=== PATIENT | male | born 1955 | race Caucasian/White ===

== ENCOUNTER → 2016-05-07 | Day surgery (SDC) | payer BC ==
[2016-05-01 13:30] VITALS: Ht 172.7 cm; Wt 86.4 kg
[~2016-05-07] VITALS: Ht 172.7 cm; Wt 86.4 kg
[~2016-05-07] MED LIST: ATOR-24 PO; IRBE-37 PO; LIDOCAINE HCL 2% 2 ML VIAL (20MG/ML) ONE; METO50TA7 PO; PROPOFOL IV EMULSION 10 MG/ML 20 ML VIAL IV ONE; SODIUM CHLORIDE 0.9% 500ML 500 ML IV ONE
--- NOTE | 2016-05-07 09:40 | Endo History and Physical ---
History & Physical Date of Service: May 07, 2016. Chief Complaint: screening Referring Physician: Dr. Rafael Holder History of Present Illness 61 yo CM who presents for screening colonoscopy. Past Surgical History Hx Cardiac Surgery: No Hx Internal Defibrillator: No Hx Pacemaker: No Hx Abdominal Surgery: No Hx of Implantable Prosthesis: No Hx Post-Op Nausea and Vomiting: No Hx Cancer Surgery: No Hx Thoracic Surgery: No Hx Orthopedic: No Hx Urinary Tract Surgery: No Family History None Social History Smoking Status: Never Smoker Hx Substance Use: No Hx Alcohol Use: No Allergies Coded Allergies: No Known Allergies (Verified , 05/07/16) Current Medications Reported Home Medications Medications Dose Route/Sig Max Daily Dose Days Date Category Lipitor (Atorvastatin Calcium) 40 Mg Tab 40 Mg PO HS 05/01/16 Reported Toprol-Xl (Metoprolol Succinate) 50 Mg Tabcr 50 Mg PO BID 05/01/16 Reported Avapro (Irbesartan) 150 Mg Tab 150 Mg PO HS 05/01/16 Reported Vital Signs Weight (Kilograms): 86.36 Height (Feet): 5 Height (Inches): 8 Date Time Temp Pulse Resp B/P Pulse Ox O2 Delivery O2 Flow Rate FiO2 05/07/16 09:19 36.9 80 16 174/87 98 Room Air Physical Exam General Appearance: WD/WN, no apparent distress Respiratory/Chest: Auscultation: breath sounds normal Cardiovascular: Heart Auscultation: RRR Abdomen: Bowel Sounds: normal Inspection & Palpation: soft, non-distended, no tenderness, guarding & rebound Assessment and Plan Assessment: 61 yo CM who presents for screening colonoscopy. Plan: Proceed with colonoscopy.
--- NOTE | 2016-05-07 09:56 | Discharge Instructions ---
Endoscopy Patient Instructions Date / Procedure(s) Performed May 07, 2016. Colonoscopy Allergy Information Coded Allergies: No Known Allergies (Verified , 05/07/16) Discharge Date / Findings May 07, 2016. Diverticulosis Internal hemorrhoids Medication Instructions OK to resume all medications today as prescribed. Reported Home Medications Medications Dose Route/Sig Max Daily Dose Days Date Category Lipitor (Atorvastatin Calcium) 40 Mg Tab 40 Mg PO HS 05/01/16 Reported Toprol-Xl (Metoprolol Succinate) 50 Mg Tabcr 50 Mg PO BID 05/01/16 Reported Avapro (Irbesartan) 150 Mg Tab 150 Mg PO HS 05/01/16 Reported Provider Instructions Activity Restrictions - No exercising or heavy lifting for 24 hours. - Do not drink alcohol the day of the procedure. - Do not drive a car or operate machinery until the day after the procedure. - Do not make any important decisions or sign important papers in 24 hours after the procedure. Following Day: - Return to full activity which may include returning to work/school. Diet Start your diet with liquids and light foods (jello, soup, juice, toast). Then eat your usual diet if not nauseated. Treatment For Common After Affects For mild abdominal pain, bloating, or excessive gas: - Rest - Eat lightly - Lie on right side Follow-Up Information Follow-up with Dr. Rafael Holder as scheduled Anesthesia Information What You Should Know You have had a procedure that required some medicine to reduce anxiety and discomfort. This treatment is called moderate sedation. After receiving the treatment, you may be sleepy, but you will be able to breathe on your own. The effects of the treatment may last for several hours. Follow these instructions along with Activity/Diet recommendations noted above: * Do NOT do anything where dizziness or clumsiness would be dangerous. * Rest quietly at home today, then you can be up and about tomorrow. * Have a responsible person stay with you the rest of today. * You may have had an I.V. today. If so, you may take the dressing off later today. Recommendations Call your doctor if: * Trouble breathing * Continuous vomiting for more than 24 hours * Temperature above 101 degrees * Severe abdominal pain or bloating * Pain not relieved by pain medicine ordered * There is increased drainage or redness from any incision * A large amount of rectal bleeding greater than 2-3 tablespoons. (If you had a polyp/s removed or have hemorrhoids, a small amount of blood - from the rectum is to be expected.) * You have any unanswered questions or concerns. IN THE EVENT OF A SERIOUS EMERGENCY, GO TO THE NEAREST EMERGENCY ROOM Your discharge instructions were prepared by provider John Acuña. Patient Instructions Signature Page Michele Villa Patient (or Guardian) Signature/Date: I have read and understand the instructions given to me by my caregivers. Caregiver/RN/Doctor Signature/Date: The above-named patient and/or guardian has received patient instructions on this date. + Original Patient Signature Page (only) stays with chart. Please make copy for patient.
--- NOTE | 2016-05-07 10:17 | GI REPORT ---
Procedure Date: 05/07/2016 9:36 AM Procedure: Colonoscopy Indications: Screening for colorectal malignant neoplasm Medicines: Monitored Anesthesia Care Complications: No immediate complications. Estimated Blood Loss: Estimated blood loss: none. Procedure: Pre-Anesthesia Assessment: - Prior to the procedure, a History and Physical was performed, and patient medications and allergies were reviewed. The patient's tolerance of previous anesthesia was also reviewed. The risks and benefits of the procedure and the sedation options and risks were discussed with the patient. All questions were answered, and informed consent was obtained. Prior Anticoagulants: The patient has taken no previous anticoagulant or antiplatelet agents. ASA Grade Assessment: II - A patient with mild systemic disease. After reviewing the risks and benefits, the patient was deemed in satisfactory condition to undergo the procedure. After I obtained informed consent, the scope was passed under direct vision. Throughout the procedure, the patient's blood pressure, pulse, and oxygen saturations were monitored continuously. The On-site loaner was introduced through the anus and advanced to the cecum, identified by appendiceal orifice and ileocecal valve. The colonoscopy was performed without difficulty. The patient tolerated the procedure well. The quality of the bowel preparation was good. The ileocecal valve, appendiceal orifice, and rectum were photographed. Findings: Multiple small-mouthed diverticula were found in the sigmoid colon. Non-bleeding internal hemorrhoids were found during retroflexion. The hemorrhoids were small. Impression: - Diverticulosis in the sigmoid colon. - Non-bleeding internal hemorrhoids. - No specimens collected. Recommendation: - Resume previous diet. - Continue present medications. - Repeat colonoscopy in 10 years for surveillance. - Return to primary care physician as previously scheduled. John Acuña, DO 05/07/2016 10:01:55 AM This report has been signed electronically. Note Initiated On: 05/07/2016 9:36 AM
--- NOTE | 2016-05-07 10:17 | Anesthesiology Progress Note ---
Anesthesia Post Op Note Date & Time May 07, 2016 at 10:18 Vital Signs Pain Intensity: 0 Vital Signs Past 12 Hours Date Time Temp Pulse Resp B/P Pulse Ox O2 Delivery O2 Flow Rate FiO2 05/07/16 10:01 77 20 97/58 97 Room Air 05/07/16 09:19 36.9 80 16 174/87 98 Room Air Notes Mental Status: alert / awake / arousable, participated in evaluation Pt Amnestic to Procedure: Yes Nausea / Vomiting: adequately controlled Pain: adequately controlled Airway Patency, RR, SpO2: stable & adequate BP & HR: stable & adequate Hydration State: stable & adequate Anesthetic Complications: no major complications apparent
[2016-05-07 10:31] VITALS: BP 124/69; PULSE 64; O2SAT 97
== END | disposition home or self-care (01) ==
LOC: C.GI 08:45
PROVIDERS: ATTEND Internal Medicine
DX: Z12.11 Encounter for screening for malignant neoplasm of colon (principal); K57.30 Diverticulosis of large intestine without perforation or abscess without bleeding; K64.8 Other hemorrhoids

== ENCOUNTER → 2016-05-25 | Outpatient (CLI) | payer BC ==
[~2016-05-25] MED LIST changes: -LIDOCAINE HCL 2% 2 ML VIAL (20MG/ML) ONE; -PROPOFOL IV EMULSION 10 MG/ML 20 ML VIAL IV ONE; -SODIUM CHLORIDE 0.9% 500ML 500 ML IV ONE
[2016-05-25 08:21] LABS: BASO % 0.1 %; BASO ABS # 0.01 K/uL (0-0.2); COMPLETE YES; EOS % 0.9 %; HEMATOCRIT 46.9 % (42-52); IG% 0.2 %; LYMPH % 27.2 %; LYMPH ABS # 2.37 K/uL (1.2-3.4); MEAN CELL VOLUME 86.9 fL (80-100); MEAN CORPUSCULAR HGB CONC 34.5 g/dl (32-36); MONO % 8.2 %; NEUT % 63.4 %; PLATELET COUNT 261 K/uL (130-400)
[2016-05-25 09:00] LABS: PROSTATE SPECIFIC ANTIGEN 1.06 ng/ml (0.000-4.000)
[2016-05-26 08:11] LABS: ESTIMATED AVERAGE GLUCOSE 117 mg/dl; HA1C FLAG Normal (Normal)
== END | disposition home or self-care (01) ==
LOC: C.LAB 07:55
PROVIDERS: ATTEND Internal Medicine
DX: R97.20 Elevated prostate specific antigen [PSA] (principal); I10 Essential (primary) hypertension; D72.829 Elevated white blood cell count, unspecified; E78.00 Pure hypercholesterolemia, unspecified

== ENCOUNTER → 2016-10-23 | Outpatient (CLI) | payer BC | END | disposition home or self-care (01) | LOC: C.PATHSPEC 16:43 | PROVIDERS: ATTEND Dermatology | DX: L82.1 Other seborrheic keratosis (principal); L57.0 Actinic keratosis ==

== ENCOUNTER → 2016-11-27 | Outpatient (CLI) | payer BC ==
[2016-11-27 16:14] LABS: ALT/SGPT 33 U/L (12-78); BLOOD UREA NITROGEN 13 mg/dl (7-18); BUN/CREATININE RATIO 12.9 (10-20); CALCIUM 8.8 mg/dl (8.5-10.1); CARBON DIOXIDE 28 mmol/L (21-32); CHLORIDE 108 mmol/L (98-107); CREATININE 0.99 mg/dl (0.60-1.40); GLUCOSE 83 mg/dl (70-99); POTASSIUM 3.6 mmol/L (3.5-5.1); SODIUM 141 mmol/L (136-145)
[2016-11-27 16:16] LABS: ALB/GLOB RATIO 1.4 (0.9-2); ALKALINE PHOSPHATASE 76 U/L (45-117); AST/SGOT 25 U/L (15-37)
[2016-11-28 06:42] LABS: ESTIMATED AVERAGE GLUCOSE 117 mg/dl; HA1C FLAG Normal (Normal)
== END | disposition home or self-care (01) ==
LOC: C.LAB 15:02
PROVIDERS: ATTEND Internal Medicine
DX: R73.01 Impaired fasting glucose (principal); D72.829 Elevated white blood cell count, unspecified

== ENCOUNTER → 2017-05-31 | Outpatient (CLI) | payer BC ==
[~2017-05-31] MED LIST changes: -METO50TA7 PO; +METO50TA8 PO
[2017-06-01 07:12] LABS: HEMOGLOBIN A1C 5.7 % (4.5-5.6)
== END | disposition home or self-care (01) ==
LOC: C.LAB 08:14
PROVIDERS: ATTEND Internal Medicine
DX: R73.01 Impaired fasting glucose (principal); E78.00 Pure hypercholesterolemia, unspecified

== ENCOUNTER 2021-07-18 06:08 | Inpatient (IN) ==
[~2021-07-18 06:08] MED LIST changes: -ATOR-24 PO; +GENTAMICIN SULFATE 80 MG in DEXTROSE 5% 100 ML IV SCH; -IRBE-37 PO; -METO50TA8 PO
[2021-07-18] MEDS ORDERED: ACETAMINOPHEN 1,000 MG/100 ML VIAL IV STA (06:50)
[2021-07-18] MEDS ORDERED: ONDANSETRON INJ 2 MG/ML 2 ML VIAL IV STA (06:50)
[2021-07-18] MEDS ORDERED: SODIUM CHLORIDE 0.9% 1000ML 1,000 ML IV STA (06:50)
[2021-07-18 07:30] LABS: Basophils # (auto) 0.03 K/uL (0-0.2); Basophils % (auto) 0.2 %; Eosinophils # (auto) 0.12 K/uL (0-0.5); Eosinophils % (auto) 0.7 %; Hematocrit (blood only) 39.9 % (42-52); Hemoglobin 13.6 g/dL (14.0-18.0); Immature Granulocytes # (auto) 0.07 K/uL (0.00-0.02); Immature Granulocytes % (auto) 0.4 %; Lymphocytes # (auto) 1.11 K/uL (1.2-3.4); Lymphocytes % (auto) 6.2 %; Mean Corpuscular Hemoglobin 30.7 pg (25-34); Mean Corpuscular Hgb Conc 34.1 g/dL (32-36); Mean Corpuscular Volume 90.1 fL (80-100); Mean Platelet Volume 9.8 fL (7.4-10.4); Monocytes # (auto) 1.46 K/uL (0.11-0.59); Monocytes % (auto) 8.2 %; Neutrophils % (auto) 84.3 %; Platelet Count 297 K/uL (130-400); RDW Coefficient of Variation 13.4 % (11.5-14.5); RDW Standard Deviation 44.3 fL (36.4-46.3); Red Blood Count 4.43 M/uL (4.7-6.1); White Blood Count 17.89 K/uL (4.8-10.8)
[2021-07-18 07:31] LABS: Appearance Urine Clear (Clear); Bilirubin Urine Negative (Negative); Blood Urine 1+ (Negative); Color Urine Yellow; Glucose Urine UA Negative (Negative); Ketones Urine Negative (Negative); Leukocyte Esterase Urine Trace (Negative); Nitrite Urine Negative (Negative); Protein Urine 2+ (Negative); RBC Urine Automated 0-4 /hpf (0-4); Specific Gravity Urine 1.027 (1.000-1.030); Urobilinogen Urine Negative (Negative); pH Urine 5.5 (4.5-7.5)
--- NOTE | 2021-07-18 07:37 | Emergency Department Note ---
Impression & Plan Prostate abscess ED Provider Note CHIEF COMPLAINT: Back pain, cannot urinate HISTORY OF PRESENT ILLNESS: This 66-year-old male patient presents to the emergency department presents emergency department with complaints of inability to urinate x1 week. He states he urinates "a thimble full" multiple times a day. He has developed a bilateral mid back pain. 5 to 6 days ago the patient experienced severe pain after the onset of this discomfort and some grossly bloody urine. He had rigors, sweats and sat on the ground of the bathroom. Patient denies any vomiting at the time. He denies a strong history of prostate difficulties, kidney stones or abdominal surgeries. He does have an implanted loop recorder and a history of strokes. REVIEW OF SYSTEMS: A review of systems was performed with positives and pertinent negatives listed in the history of present illness. 10 systems were reviewed and are otherwise negative. ALLERGIES: see below MEDICATIONS: see below PMH: see below SOCIAL HISTORY: see below DDx: Renal colic, UTI, appendicitis, diverticulitis, mesenteric ischemia, aortic pathology, infections, inflammatory bowel disease, PUD, biliary pathology, as well as other pathologies. PHYSICAL EXAM: Vital signs reviewed. General: Generally well appearing 66 yo male, in no significant distress. HEENT: No scleral icterus, PERRLA, neck supple. Atraumatic. Cardiovascular: Regular rate and rhythm, no extra sounds. Pulmonary: Clear to auscultation bilaterally, normal work of breathing. Abdomen: Soft, nontender, nondistended, positive bowel sounds. Musculoskeletal: L>R flank pain, no peripheral edema. Neurologic: Patient awake alert and oriented x 3, speech is clear Skin: Warm, dry, no rash EMERGENCY DEPARTMENT COURSE/MDM: This patient was evaluated and appeared to be in no significant distress. IV access was obtained and laboratory work was drawn. The patient was placed on potline monitor noted to be in normal sinus rhythm. There is no significant sign of urinary retention on exam. Patient does have a notable WBC but is afebrile with normal vital signs on exam. CT imaging of the abdomen pelvis was performed and reveals an abscess of the prost ate. Patient was given IV Cipro. UA has been sent. Case was discussed with urology who has recommended consultation with the hospitalist service as well as operative management. Patient was given a dose of IV Zosyn at their request. Patient and were made aware of the plan and agreed. MONITORING: An order for cardiac monitoring was placed and the patient is noted to be in a NSR at 63 beats per minute. RADIOLOGY: See below DISPOSITION:OR/admit Past Med/Surg History Medical History Achalasia BPH (benign prostatic hyperplasia) Hypercholesterolemia Hypertension Pre-diabetes Surgical History S/P tonsillectomy Family History Father Myocardial infarction Grandfather (Paternal) Myocardial infarction Grandfather (Maternal) Myocardial infarction Denies family history of Ovarian cancer Prostate cancer Coronary heart disease Breast cancer Lung cancer Colorectal cancer Social History Smoking Status: Never smoker Second Hand Exposure: Yes; Hx Alcohol Use: No Hx Substance Use: No Preferred Language: Beninese Communication Ability: Effective Visual Impairment: No Limitations Hearing Ability: Hard of Hearing Heat And Frost Insulator Required: No Beliefs That Will Affect Care: None marital status: Current Living Situation: Spouse current occupational status: retired Feels Safe at Home: Yes Childhood Exposure to Second-Hand Smoke: Yes caffeine: Yes during the past year weight has: remained stable Dental Care, Regularly: Yes Physical Activity Frequency: Daily Seatbelt Use: always Sunscreen Use: Yes Assistive Devices: None Allergies Allergies Allergy/AdvReac Type Severity Reaction Status Date / Time simvastatin [From Zocor] AdvReac Verified 07/15/21 10:36 Home Meds Previous Rx's Medication Instructions Recorded hydrocortisone 2.5 % topical cream 1 applic TOPICAL BID #30 g 02/09/20 atorvastatin 40 mg tablet 40 mg PO DAILY #90 tab 01/16/21 metoprolol succinate 50 mg 50 mg PO BID #180 tab 01/16/21 tablet,extended release 24 hr ciprofloxacin HCl 500 mg tablet 500 mg PO BID 28 Days #56 tab 07/20/21 Results & Data (ED) Vital Signs Vital Signs - 24 hr 07/18/21 06:13 07/18/21 06:41 07/18/21 07:12 Temperature 36.8 C 36.8 C Temperature Source Temporal Artery Scan Oral Pulse Rate 73 Pulse Rate [Apical] 77 63 Pulse Rhythm [Apical] Regular Pulse Strength [Apical] Normal Respiratory Rate 18 18 16 Respiratory Effort / Characteristics Non-Labored Spontaneous Non-Labored Spontaneous Respiratory Depth Normal Normal Respiratory Pattern Regular Blood Pressure 157/76 H Blood Pressure [Right Arm] 147/72 H 139/70 Blood Pressure Mean 103 Blood Pressure Mean [Right Arm] 97 93 Blood Pressure Position [Right Arm] Lying Pulse Oximetry 97 100 99 Oxygen Delivery Method Room Air Room Air Room Air Oxygen Flow Rate Sepsis Recent Fever Within 48 Hours No Sepsis New/Unexplained Change in Mental Status No Sepsis Action Taken by Nursing No Action Required 07/18/21 07:15 07/18/21 09:00 07/18/21 10:28 Temperature Temperature Source Pulse Rate Pulse Rate [Apical] 60 64 Pulse Rhythm [Apical] Pulse Strength [Apical] Respiratory Rate 18 14 Respiratory Effort / Characteristics Respiratory Depth Respiratory Pattern Blood Pressure Blood Pressure [Right Arm] 118/61 135/73 Blood Pressure Mean Blood Pressure Mean [Right Arm] 80 93 Blood Pressure Position [Right Arm] Pulse Oximetry 98 98 Oxygen Delivery Method Room Air Room Air Room Air Oxygen Flow Rate Sepsis Recent Fever Within 48 Hours Sepsis New/Unexplained Change in Mental Status Sepsis Action Taken by Nursing 07/18/21 10:42 07/18/21 11:04 07/18/21 13:45 Temperature 36.6 C 36.2 C L Temperature Source Oral Temporal Artery Scan Pulse Rate Pulse Rate [Apical] 64 61 Pulse Rhythm [Apical] Regular Regular Pulse Strength [Apical] Normal Normal Respiratory Rate 18 19 Respiratory Effort / Characteristics Non-Labored Spontaneous Non-Labored Spontaneous Respiratory Depth Normal Normal Respiratory Pattern Regular Blood Pressure Blood Pressure [Right Arm] 135/73 123/58 L Blood Pressure Mean Blood Pressure Mean [Right Arm] 93 79 Blood Pressure Position [Right Arm] Sitting Semi-fowlers Pulse Oximetry 98 100 Oxygen Delivery Method Room Air Room Air Oxymask Oxygen Flow Rate 8 Sepsis Recent Fever Within 48 Hours Sepsis New/Unexplained Change in Mental Status Sepsis Action Taken by Nursing 07/18/21 13:55 07/18/21 14:05 07/18/21 14:15 Temperature 36.2 C L Temperature Source Temporal Artery Scan Pulse Rate Pulse Rate [Apical] 58 L 57 L 55 L Pulse Rhythm [Apical] Regular Regular Regular Pulse Strength [Apical] Normal Normal Normal Respiratory Rate 19 16 19 Respiratory Effort / Characteristics Non-Labored Spontaneous Non-Labored Spontaneous Non-Labored Spontaneous Respiratory Depth Normal Normal Normal Respiratory Pattern Regular Regular Regular Blood Pressure Blood Pressure [Right Arm] 103/73 141/56 H 139/69 Blood Pressure Mean Blood Pressure Mean [Right Arm] 83 84 92 Blood Pressure Position [Right Arm] Semi-fowlers Semi-fowlers Semi-fowlers Pulse Oximetry 94 99 100 Oxygen Delivery Method Oxymask Nasal Cannula Nasal Cannula Oxygen Flow Rate 6 2 2 Sepsis Recent Fever Within 48 Hours Sepsis New/Unexplained Change in Mental Status Sepsis Action Taken by Half-Way Medications Current Medication List: was personally reviewed by me Laboratory Data Attestation: I reviewed the patient's lab results. Result diagrams: 07/20/21 08:38 07/20/21 08:38 Lab Results 07/18/21 07/18/21 07/18/21 Range/Units 07:13 07:13 07:13 WBC 17.89 H (4.8-10.8) K/uL RBC 4.43 L (4.7-6.1) M/uL Hgb 13.6 L (14.0-18.0) g/dL Hct 39.9 L (42-52) % MCV 90.1 (80-100) fL MCH 30.7 (25-34) pg MCHC 34.1 (32-36) g/dL RDW Std Deviation 44.3 (36.4-46.3) fL RDW Coeff of Kelsi 13.4 (11.5-14.5) % Plt Count 297 (130-400) K/uL MPV 9.8 (7.4-10.4) fL Immature Gran % (Auto) 0.4 % Neut % (Auto) 84.3 % Lymph % (Auto) 6.2 % Weakley % (Auto) 8.2 % Eos % (Auto) 0.7 % Baso % (Auto) 0.2 % Neut # (Auto) 15.10 H (1.4-6.5) K/uL Lymph # (Auto) 1.11 L (1.2-3.4) K/uL Weakley # (Auto) 1.46 H (0.11-0.59) K/uL Eos # (Auto) 0.12 (0-0.5) K/uL Baso # (Auto) 0.03 (0-0.2) K/uL Immature Gran # (Auto) 0.07 H (0.00-0.02) K/uL Sodium 137 (136-145) mmol/L Potassium TNP Chloride 104 (98-107) mmol/L Carbon Dioxide 28 (21-32) mmol/L Anion Gap 5 (3-11) BUN 21 (6-23) mg/dl Creatinine 0.91 (0.6-1.4) mg/dl Est Cr Clr Drug Dosing 78.3 ml/min Est GFR ( Amer) 102.1 ml/min Est GFR (Non-Af Amer) 88.1 ml/min BUN/Creatinine Ratio 23.1 H (10-20) Glucose 105 H (70-99(Fasting)) mg/dl Lactate (0.4-2.0) mmol/L Calcium 8.8 (8.5-10.1) mg/dl Total Bilirubin 0.6 (0.2-1.0) mg/dl AST TNP ALT 46 (7-52) U/L Alkaline Phosphatase 68 (34-104) U/L Total Protein 6.8 (6.0-8.3) gm/dl Albumin 3.6 (3.4-5.0) gm/dl Globulin 3.2 (2.5-4.0) gm/dl Albumin/Globulin Ratio 1.1 (0.9-2) Lipase 27 (11-82) U/L Urine Color Yellow Urine Appearance Clear (Clear) Urine pH 5.5 (4.5-7.5) Ur Specific Harts 1.027 (1.000-1.030) Urine Protein 2+ H (Negative) Urine Glucose (UA) Negative (Negative) Urine Ketones Negative (Negative) Urine Blood 1+ H (Negative) Urine Nitrite Negative (Negative) Urine Bilirubin Negative (Negative) Urine Urobilinogen Negative (Negative) Ur Leukocyte Esterase Trace H (Negative) Urine WBC (Auto) 10-30 H (0-5) /hpf Urine RBC (Auto) 0-4 (0-4) /hpf U Hyaline Cast (Auto) 1-5 (0-5) /lpf U Epithel Cells (Auto) 5-10 H (0-5) /lpf Urine Bacteria (Auto) 1+ H (Negative) Ur Renal Epithelial Cell Not Reportable Urine Mucus Present A (None Prsent) SARS-CoV-2 (PCR) (Negative) Influenza Type A (PCR) (Neg) Influenza Type B (PCR) (Neg) RSV (RT-PCR) (Neg) 07/18/21 07/18/21 07/18/21 Range/Units 07:55 09:33 09:57 WBC (4.8-10.8) K/uL RBC (4.7-6.1) M/uL Hgb (14.0-18.0) g/dL Hct (42-52) % MCV (80-100) fL MCH (25-34) pg MCHC (32-36) g/dL RDW Std Deviation (36.4-46.3) fL RDW Coeff of Kelsi (11.5-14.5) % Plt Count (130-400) K/uL MPV (7.4-10.4) fL Immature Gran % (Auto) % Neut % (Auto) % Lymph % (Auto) % Weakley % (Auto) % Eos % (Auto) % Baso % (Auto) % Neut # (Auto) (1.4-6.5) K/uL Lymph # (Auto) (1.2-3.4) K/uL Weakley # (Auto) (0.11-0.59) K/uL Eos # (Auto) (0-0.5) K/uL Baso # (Auto) (0-0.2) K/uL Immature Gran # (Auto) (0.00-0.02) K/uL Sodium (136-145) mmol/L Potassium 4.1 Chloride (98-107) mmol/L Carbon Dioxide (21-32) mmol/L Anion Gap (3-11) BUN (6-23) mg/dl Creatinine (0.6-1.4) mg/dl Est Cr Clr Drug Dosing ml/min Est GFR ( Amer) ml/min Est GFR (Non-Af Amer) ml/min BUN/Creatinine Ratio (10-20) Glucose (70-99(Fasting)) mg/dl Lactate 1.1 (0.4-2.0) mmol/L Calcium (8.5-10.1) mg/dl Total Bilirubin (0.2-1.0) mg/dl AST 42 H ALT (7-52) U/L Alkaline Phosphatase (34-104) U/L Total Protein (6.0-8.3) gm/dl Albumin (3.4-5.0) gm/dl Globulin (2.5-4.0) gm/dl Albumin/Globulin Ratio (0.9-2) Lipase (11-82) U/L Urine Color Urine Appearance (Clear) Urine pH (4.5-7.5) Ur Specific Harts (1.000-1.030) Urine Protein (Negative) Urine Glucose (UA) (Negative) Urine Ketones (Negative) Urine Blood (Negative) Urine Nitrite (Negative) Urine Bilirubin (Negative) Urine Urobilinogen (Negative) Ur Leukocyte Esterase (Negative) Urine WBC (Auto) (0-5) /hpf Urine RBC (Auto) (0-4) /hpf U Hyaline Cast (Auto) (0-5) /lpf U Epithel Cells (Auto) (0-5) /lpf Urine Bacteria (Auto) (Negative) Ur Renal Epithelial Cell Urine Mucus (None Prsent) SARS-CoV-2 (PCR) NEGATIVE (Negative) Influenza Type A (PCR) Negative (Neg) Influenza Type B (PCR) Negative (Neg) RSV (RT-PCR) Negative (Neg) Administered Medications Discontinued Medications Acetaminophen (Acetaminophen 325 Mg Tab) 650 mg PO Q4H PRN PRN Reason: Pain or Fever Stop: 08/17/21 14:52 Last Admin: 07/18/21 17:21 Dose: 650 mg Documented by: [id number] Atorvastatin Calcium (Atorvastatin 40 Mg Tab) 40 mg PO QPM [facility] Stop: 08/17/21 20:59 Last Admin: 07/19/21 21:14 Dose: 40 mg Documented by: [id number] Admin: 07/18/21 21:55 Dose: 40 mg Documented by: [id number] Ciprofloxacin (Ciprofloxacin 500 Mg Tab) 500 mg PO BID [facility]; Protocol Stop: 07/30/21 13:39 Last Admin: 07/20/21 13:59 Dose: 500 mg Documented by: [id number] Docusate Sodium (Docusate Sodium 100 Mg Cap) 100 mg PO BID [facility] Stop: 08/19/21 11:59 Last Admin: 07/20/21 12:42 Dose: 100 mg Documented by: [id number] Sodium Chloride (Nss 1000ml) 1,000 mls @ 125 mls/hr IV .Q8H STA Stop: 07/18/21 14:49 Last Infusion: 07/18/21 18:02 Dose: 0 mls/hr Documented by: [id number] Admin: 07/18/21 07:27 Dose: 125 mls/hr Documented by: [id number] Acetaminophen (Ofirmev) 1,000 mg in 100 mls @ 400 mls/hr IV NOW STA Stop: 07/18/21 07:04 Last Infusion: 07/18/21 07:42 Dose: 0 mls/hr Documented by: [id number] Admin: 07/18/21 07:27 Dose: 400 mls/hr Documented by: [id number] Ciprofloxacin (Cipro / D5w) 400 mg in 200 mls @ 100 mls/hr IV NOW STA; Protocol Stop: 07/18/21 11:10 Last Infusion: 07/18/21 18:00 Dose: 0 mls/hr Documented by: [id number] Admin: 07/18/21 09:32 Dose: 100 mls/hr Documented by: [id number] Piperacillin Sod/Tazobactam Sod (Zosyn) 4.5 gm in 120 mls @ 240 mls/hr IV NOW ONE Stop: 07/18/21 10:10 Last Admin: 07/18/21 17:11 Dose: Not Given Documented by: [id number] Gentamicin Sulfate 80 mg/ (Dextrose) 102 mls @ 100 mls/hr IV PREOP [facility] Stop: 07/19/21 05:59 Last Infusion: 07/18/21 17:20 Dose: 0 mls/hr Documented by: [id number] Admin: 07/18/21 12:35 Dose: 100 mls/hr Documented by: [id number] Cefazolin Sodium (Ancef 1000mg) 1,000 mg in 7.5 mls @ 2.5 mls/min IV ONCE ONE Stop: 07/18/21 12:49 Last Admin: 07/18/21 12:48 Dose: 2.5 mls/min Documented by: [id number] Piperacillin Sod/Tazobactam (Sod 4.5 gm/ Dextrose) 120 mls @ 200 mls/hr IV ONE ONE; Protocol Stop: 07/18/21 16:35 Last Infusion: 07/18/21 17:55 Dose: 0 mls/hr Documented by: [id number] Admin: 07/18/21 17:16 Dose: 200 mls/hr Documented by: [id number] Piperacillin Sod/Tazobactam (Sod 3.375 gm/ Dextrose) 115 mls @ 28.75 mls/hr IV Q8H [facility]; Protocol Stop: 07/28/21 21:59 Last Infusion: 07/20/21 09:23 Dose: 0 mls/hr Documented by: [id number] Admin: 07/20/21 05:17 Dose: 28.8 mls/hr Documented by: [id number] Infusion: 07/20/21 01:29 Dose: 0 mls/hr Documented by: [id number] Admin: 07/19/21 21:14 Dose: 28.8 mls/hr Documented by: [id number] Infusion: 07/19/21 18:08 Dose: 0 mls/hr Documented by: [id number] Admin: 07/19/21 14:01 Dose: 28.8 mls/hr Documented by: [id number] Infusion: 07/19/21 09:26 Dose: 0 mls/hr Documented by: [id number] Admin: 07/19/21 05:23 Dose: 28.8 mls/hr Documented by: [id number] Infusion: 07/19/21 02:55 Dose: 0 mls/hr Documented by: [id number] Admin: 07/18/21 22:47 Dose: 28.8 mls/hr Documented by: [id number] Vancomycin HCl 1,500 mg/ (Sodium Chloride) 530 mls @ 200 mls/hr IV NOW ONE Stop: 07/19/21 15:23 Last Infusion: 07/19/21 18:15 Dose: 0 mls/hr Documented by: [id number] Admin: 07/19/21 15:13 Dose: 200 mls/hr Documented by: [id number] Vancomycin HCl 1,000 mg/ (Sodium Chloride) 270 mls @ 200 mls/hr IV Q12H [facility] Stop: 07/30/21 03:59 Last Infusion: 07/20/21 06:29 Dose: 0 mls/hr Documented by: [id number] Admin: 07/20/21 04:47 Dose: 200 mls/hr Documented by: [id number] Ioversol (Optiray 320 100ml) 95 ml IV ONCE ONE Stop: 07/18/21 08:31 Last Admin: 07/18/21 08:22 Dose: 95 ml Documented by: [id number] Menthol (Cough Drop (Sugar Free) Ariane 24 Ariane/1 Box) 1 ariane BUCCAL Q4H PRN PRN Reason: Sore Throat Stop: 08/17/21 19:54 Last Admin: 07/18/21 22:31 Dose: 1 ariane Documented by: [id number] Metoprolol Succinate (Metoprolol Succ 50mg Ext Rel Tab) 50 mg PO BID [facility] Stop: 08/17/21 20:59 Last Admin: 07/20/21 09:12 Dose: 50 mg Documented by: [id number] Admin: 07/19/21 21:19 Dose: Not Given Documented by: [id number] Admin: 07/19/21 08:37 Dose: 50 mg Documented by: [id number] Admin: 07/18/21 21:55 Dose: 50 mg Documented by: [id number] Ondansetron HCl (Ondansetron Inj 2 Mg/Ml 2 Ml Vial) 4 mg IV NOW STA Stop: 07/18/21 06:51 Last Admin: 07/18/21 07:26 Dose: 4 mg Documented by: [id number] Imaging Data Radiologist's Impression: Abdomen/Pelvis CT 07/18/21 06:50 CT SCAN OF THE ABDOMEN AND PELVIS WITH IV CONTRAST CLINICAL HISTORY: Bilateral flank pain COMPARISON STUDY: No priors. TECHNIQUE: Following the IV administration of 95 cc of Optiray 320, CT scan of the abdomen and pelvis is performed from the lung bases to the proximal femora. Images are reviewed in the axial, sagittal, and coronal planes. IV contrast was administered without complication. A dose lowering technique was utilized adhering to the principles of ALARA. CT DOSE: 303.35 mGy.cm FINDINGS: Lung bases: The heart is normal in size noting trace pericardial effusion. The lung bases are clear. A small hiatal hernia is noted. Circumferential wall thickening is noted in the distal esophagus. Liver: The contrast-enhanced liver is normal in size, contour, and attenuation. There is no intrahepatic biliary ductal dilatation. The hepatic veins and portal veins are patent. Gallbladder: Unremarkable. Spleen: Normal in size and attenuation. Pancreas: Unremarkable. Adrenal glands: Unremarkable. Kidneys: The contrast enhanced kidneys are normal in size and without hydronephrosis. Cortical enhancement is slightly heterogeneous bilaterally. Urothelial thickening and enhancement is identified in the ureters and renal pelvis bilaterally with surrounding inflammation perinephric stranding. A 1.3 cm cyst is noted in the right kidney. Abdominal vasculature: The abdominal aorta is normal in course and caliber noting moderate to advanced atherosclerotic calcification. Bowel: There is mild to moderate colonic fecal retention. No bowel obstruction is identified. There are scattered colonic diverticula without CT evidence of acute diverticulitis. The appendix is mildly distended and fluid-filled as seen on image #247. This measures up to 8 mm in diameter. There is gas at the tip of the appendix, with no surrounding inflammation. Peritoneum: There is no intraperitoneal free air or abdominal ascites. Lymphadenopathy: None. Pelvic viscera: The prostate gland is markedly enlarged and heterogeneous, measuring 6.2 cm in transverse diameter. The bladder wall is thickened and hyperemic with pericystic inflammation. Inflammatory changes also seen around th e prostate, and there is a developing 2.6 cm fluid collection within the left aspect of the gland seen on image #367. This is suspicious for developing abscess. Skeletal structures: There is mild lumbosacral spondylosis. No lytic or blastic lesions are seen. IMPRESSION: 1. There is evidence of cystitis/prostatitis with significant surrounding inflammation. Correlate with clinical findings and urinalysis. 2. A 2.6 cm fluid collection is suggested in the left lobe of the prostate, likely representing a developing abscess. Follow-up with urology is recommended. Follow-up is recommended to exclude the possibility of underlying prostatic lesion. 3. There is evidence of ascending bilateral urinary tract infection. 4. The appendix is mildly dilated and largely filled with fluid. There is no surrounding inflammation, and there is gas at the tip of the appendix. Acute appendicitis is considered unlikely. If there is strong clinical concern for acute appendicitis consider short-term follow-up with enteric contrast. 5. Circumferential wall thickening is noted in the distal esophagus. Correlate clinically for evidence of esophagitis. 6. Additional findings as above. ACT 112: Negative or not required by law. Electronically signed by: Marty Barbosa M.D. 07/18/2021 8:48 AM Blood Pressure Blood Pressure Findings: Normal blood pressure Blood Pressure Disposition: did not require urgent referral Discharge Plan Visit Data Chief Complaint: Kidney Stone Stated Complaint: KIDNEY STONE? ED Provider: Marian Trotter Discharge Problem: Prostate abscess Patient Disposition: Admitted As Inpatient Discharge Instructions Interventions: ED Discharge Assessment Last Done: 07/18/21 11:04
[2021-07-18 07:42] LABS: Bacteria Urine Automated 1+ (Negative)
[2021-07-18 07:43] LABS: Mucus Urine Present (None Prsent)
[2021-07-18 07:54] LABS: Alanine Aminotransferase 46 U/L (7-52); Albumin Globulin Ratio 1.1 (0.9-2); Albumin Level 3.6 gm/dl (3.4-5.0); Alkaline Phosphatase 68 U/L (34-104); Anion Gap 5 (3-11); BUN Creatinine Ratio 23.1 (10-20); Bilirubin,Total 0.6 mg/dl (0.2-1.0); Blood Urea Nitrogen 21 mg/dl (6-23); Calcium 8.8 mg/dl (8.5-10.1); Carbon Dioxide 28 mmol/L (21-32); Chloride 104 mmol/L (98-107); Creatinine Clr Calc Pharmacy 78.3 ml/min; Est GFR (African American) 102.1 ml/min; Est GFR (Non-African American) 88.1 ml/min; Globulin 3.2 gm/dl (2.5-4.0); Glucose 105 mg/dl (70-99(Fasting)); Lipase 27 U/L (11-82); Sodium 137 mmol/L (136-145); Total Protein 6.8 gm/dl (6.0-8.3)
[2021-07-18 08:23] LABS: Potassium 4.1 mmol/L (3.5-5.1)
[2021-07-18] MEDS ORDERED: OPTIRAY 320 100ml IV ONE (08:30)
--- NOTE | 2021-07-18 08:50 | CT Scan Report ---
CT SCAN OF THE ABDOMEN AND PELVIS WITH IV CONTRAST CLINICAL HISTORY: Bilateral flank pain COMPARISON STUDY: No priors. TECHNIQUE: Following the IV administration of 95 cc of Optiray 320, CT scan of the abdomen and pelvi s is performed from the lung bases to the proximal femora. Images are reviewed in the axial, sagittal , and coronal planes. IV contrast was administered without complication. A dose lowering technique wa s utilized adhering to the principles of ALARA. CT DOSE: 303.35 mGy.cm FINDINGS: Lung bases: The heart is normal in size noting trace pericardial effusion. The lung bases are clear. A small hiatal hernia is noted. Circumferential wall thickening is noted in the distal esophagus. Liver: The contrast-enhanced liver is normal in size, contour, and attenuation. There is no intrahepa tic biliary ductal dilatation. The hepatic veins and portal veins are patent. Gallbladder: Unremarkable. Spleen: Normal in size and attenuation. Pancreas: Unremarkable. Adrenal glands: Unremarkable. Kidneys: The contrast enhanced kidneys are normal in size and without hydronephrosis. Cortical enhanc ement is slightly heterogeneous bilaterally. Urothelial thickening and enhancement is identified in t he ureters and renal pelvis bilaterally with surrounding inflammation perinephric stranding. A 1.3 cm cyst is noted in the right kidney. Abdominal vasculature: The abdominal aorta is normal in course and caliber noting moderate to advance d atherosclerotic calcification. Bowel: There is mild to moderate colonic fecal retention. No bowel obstruction is identified. There a re scattered colonic diverticula without CT evidence of acute diverticulitis. The appendix is mildly distended and fluid-filled as seen on image #247. This measures up to 8 mm in diameter. There is gas at the tip of the appendix, with no surrounding inflammation. Peritoneum: There is no intraperitoneal free air or abdominal ascites. Lymphadenopathy: None. Pelvic viscera: The prostate gland is markedly enlarged and heterogeneous, measuring 6.2 cm in transv erse diameter. The bladder wall is thickened and hyperemic with pericystic inflammation. Inflammatory changes also seen around the prostate, and there is a developing 2.6 cm fluid collection within the left aspect of the gland seen on image #367. This is suspicious for developing abscess. Skeletal structures: There is mild lumbosacral spondylosis. No lytic or blastic lesions are seen. IMPRESSION: 1. There is evidence of cystitis/prostatitis with significant surrounding inflammation. Correlate wit h clinical findings and urinalysis. 2. A 2.6 cm fluid collection is suggested in the left lobe of the prostate, likely representing a dev eloping abscess. Follow-up with urology is recommended. Follow-up is recommended to exclude the possi bility of underlying prostatic lesion. 3. There is evidence of ascending bilateral urinary tract infection. 4. The appendix is mildly dilated and largely filled with fluid. There is no surrounding inflammation , and there is gas at the tip of the appendix. Acute appendicitis is considered unlikely. If there is strong clinical concern for acute appendicitis consider short-term follow-up with enteric contrast. 5. Circumferential wall thickening is noted in the distal esophagus. Correlate clinically for evidenc e of esophagitis. 6. Additional findings as above. ACT 112: Negative or not required by law. Electronically signed by: Marty Barbosa M.D. 07/18/2021 8:48 AM
[2021-07-18] MEDS ORDERED: CIPROFLOXACIN / D5W 400 MG/200 ML BAG IV STA (09:11)
[2021-07-18] MEDS ORDERED: PIPERACILLIN/TAZOBACTAM 4.5 GM/120 ML BAG IV ONE (09:41)
[2021-07-18] MEDS ORDERED: PIPERACILL/TAZOBAC CONSULT ACTIVE PRN (09:41)
--- NOTE | 2021-07-18 10:11 | Urology Consultation ---
Date of Consultation July 18, 2021 Assessment & Plan (1) Cyst of prostate: 66yo M with past medical history including BPH and elevated PSA admitted for leukocytosis and suspected prostate abscess. - Case and imaging reviewed with Dr. Kaur. - Pt afebrile, nontoxic, VSS at present. - Lab work reviewed - creatinine 0.91, WBC 17.89, Hgb 13.6. - Urine culture pending. Currently on IV Ciprofloxacin in ED. - Blood cultures obtained and pending. - CTAP w/ IV con reviewed - abnormality noted within left lateral lobe of prostate, suspicious for prostate abscess. - Recommend admission to hospitalist service for IV antibiotics. Consider transition to IV Zosyn for expanded coverage. - Given CT findings suspicious for prostate abscess, leukocytosis, and significant dysuria/LUTS, discussed with patient and his surgical option for cystoscopy and possible drainage of abscess if present. - Patient and spouse would like to proceed with surgical intervention, all questions answered. - Proceed with cystoscopy and possible TURP today for further evaluation. - OR notified. Covid testing negative. Will cover with Gentamicin 80 mg IV preoperatively per Dr. Kaur. - Keep NPO for procedure. - Continue supportive care and management per primary service. - will follow closely with primary team. Attending note: Independently assessed, evaluated, examined, and interviewed. Patient has increasing dysuria and bother. Was having low-grade ill feelings as well as chills at home increasing in severity. Became painful and tender. Patient underwent assessment for possible stone due to his considerable pelvic pain. Found to have fluid collection within the left lateral lobe of prostate. Difficult to completely ascertain if this is truly a fluid collection versus some sort of artifact. Due to patient's significant pain, high white count, and ill feelings concern for possible prostatic abscess. Did discuss need for urgent/emergent drainage especially if patient starts to develop signs of sepsis. Reviewed extensively different options including surgical intervention. Discussed observation with IV antibiotics and further management. Discussed need for long-term antibiotics for management of issues. Patient and family have consider options. Risks and benefits discussed at length for procedure. These include bleeding, infection, injury to surrounding tissues or organs, and risks associated with anesthesia. Patient states understanding and agrees to proceed. Will sign consent and proceed with transurethral reseciton of prostate We will likely need catheter approximately 10 days for healing will likely need a significant course of IV antibiotics even with drainage. History of Present Illness Reason for Consultation: Prostate abscess Requesting Physician: Dr. Trotter History of Present Illness 66 yo M with past medical history of CVA, TIA, HTN, hypercholesterolemia, BPH, elevated PSA, prediabetes, achalasia, and s/p placement of implantable loop recorder presented to emergency department today with a 1-2 week history of urinary symptoms and back pain. He reports dysuria, urinary frequency, urgency with small voids/difficulty voiding. He also notes an episode of hematuria and rigors several days ago, which he attributed to possibly passing a kidney stone. Afebrile on arrival. Lab work reviewed and creatinine 0.91, WBC 17.89, Hgb 13.6, lactate 1.1. Urinalysis showed 1+ blood, trace leukocytes, 10-30 WBCs, 5-10 epithelials, 1+ bacteria. Urine culture collected and pending. CTAP with IV con reviewed and showed a 2.6 cm fluid collection in the left lobe of prostate concerning for possible prostate abscess. ED course included IV fluids, IV Ciprofloxacin, Tylenol, and Ondansetron. Blood cultures obtained in ED, after Ciprofloxacin initiated. Urology consulted for evaluation of prostate abscess. Patient seen and examined in ED. He is awake, alert and resting comfortably in litter. at bedside. Reports dysuria, urgency, difficulty voiding for about 2 weeks. Hematuria episode several days ago, but has cleared. He denies flank, abdominal, or bladder pain at present. No rectal pain. He feels weak and tired. Has had low appetite and nausea. No vomiting. Reports chills and sweating yesterday, did not measure temperature. No fever or chills at present. No chest pain or shortness of breath. He is currently NPO since last night. Offers no additional complaints at present. He reports remote history of kidney stones, passed spontaneously about 10-15 years ago. He was seen by [facility] in [id number] for an elevated PSA, which returned to normal after course of PO Ciprofloxacin. PSA in January 2021 was 1.220. He denies personal or family hx of malignancy. Allergies Allergy/AdvReac Type Severity Reaction Status Date / Time simvastatin [From Zocor] AdvReac Verified 07/15/21 10:36 Home Medications Medication Instructions Recorded Confirmed Type hydrocortisone 2.5 % topical cream 1 applic TOPICAL BID #30 g 02/09/20 07/15/21 Rx aspirin 81 mg tablet,delayed 81 mg PO DAILY #1 tab 04/09/20 07/15/21 Rx release atorvastatin 40 mg tablet 40 mg PO DAILY #90 tab 01/16/21 07/15/21 Rx irbesartan 300 mg tablet 300 mg PO DAILY #90 tab 01/16/21 07/15/21 Rx metoprolol succinate 50 mg 50 mg PO BID #180 tab 01/16/21 07/15/21 Rx tablet,extended release 24 hr Patient History Medical History Achalasia BPH (benign prostatic hyperplasia) Hypercholesterolemia Hypertension Pre-diabetes Surgical History S/P tonsillectomy Family History Father Myocardial infarction Grandfather (Paternal) Myocardial infarction Grandfather (Maternal) Myocardial infarction Denies family history of Ovarian cancer Prostate cancer Coronary heart disease Breast cancer Lung cancer Colorectal cancer Social History Smoking Status: Never smoker Second Hand Exposure: No; Hx Alcohol Use: No Hx Substance Use: No Preferred Language: Lithuanian Communication Ability: Effective Visual Impairment: No Limitations Hearing Ability: Hard of Hearing Certified Court Interpreter Required: No marital status: Current Living Situation: Spouse current occupational status: retired Feels Safe at Home: Yes Childhood Exposure to Second-Hand Smoke: Yes caffeine: Yes during the past year weight has: remained stable Dental Care, Regularly: Yes Physical Activity Frequency: Daily Seatbelt Use: always Sunscreen Use: Yes Review of Systems Constitutional: as per Subjective / HPI Eyes: no problem reported Ear, Nose, Mouth, Throat: no problem reported Respiratory: no dyspnea Cardiovascular: no chest pain Gastrointestinal: as per Subjective / HPI Genitourinary: + as per Subjective / HPI Musculoskeletal: no problem reported Integumentary: no problem reported Neurologic: no problem reported Psychiatric: no problem reported Physical Exam Constitutional: well developed and well nourished; no acute distress and not ill appearing Eyes: no scleral abnormality ENMT: mask in place Neck: normal visual inspection Respiratory: normal respiratory effort and able to speak in complete sentences; no respiratory distress and no labored breathing Cardiovascular: Extremities: no pedal edema Gastrointestinal (Abdomen): Inspection/Auscultation: abdomen normal to inspection; abdomen not distended Percussion/Palpation: abdomen soft; abdomen nontender and no guarding Musculoskeletal: Head/Neck/Chest: normocephalic and head atraumatic Extremities: extremities normal to inspection Skin: no rashes noted to exposed skin Neurologic: moves all extremities and awake Psychiatric: Orientation: alert and oriented x 3 Genitourinary: no CVA tenderness Results & Data ([facility]) Vital Signs (Past 12 Hours) Vital Signs Temp Pulse Pulse Resp BP BP Pulse Ox 07/18/21 09:00 60 18 118/61 98 07/18/21 07:12 63 16 139/70 99 07/18/21 06:41 36.8 C 77 18 147/72 H 100 07/18/21 06:13 36.8 C 73 18 157/[address] SCAN OF THE ABDOMEN AND PELVIS WITH IV CONTRAST CLINICAL HISTORY: Bilateral flank pain COMPARISON STUDY: No priors. TECHNIQUE: Following the IV administration of 95 cc of Optiray 320, CT scan of the abdomen and pelvis is performed from the lung bases to the proximal femora. Images are reviewed in the axial, sagittal, and coronal planes. IV contrast was administered without complication. A dose lowering technique was utilized adhering to the principles of ALARA. CT DOSE: 303.35 mGy.cm FINDINGS: Lung bases: The heart is normal in size noting trace pericardial effusion. The lung bases are clear. A small hiatal hernia is noted. Circumferential wall thickening is noted in the distal esophagus. Liver: The contrast-enhanced liver is normal in size, contour, and attenuation. There is no intrahepatic biliary ductal dilatation. The hepatic veins and portal veins are patent. Gallbladder: Unremarkable. Spleen: Normal in size and attenuation. Pancreas: Unremarkable. Adrenal glands: Unremarkable. Kidneys: The contrast enhanced kidneys are normal in size and without hydronephrosis. Cortical enhancement is slightly heterogeneous bilaterally. Urothelial thickening and enhancement is identified in the ureters and renal pelvis bilaterally with surrounding inflammation perinephric stranding. A 1.3 cm cyst is noted in the right kidney. Abdominal vasculature: The abdominal aorta is normal in course and caliber noting moderate to advanced atherosclerotic calcification. Bowel: There is mild to moderate colonic fecal retention. No bowel obstruction i s identified. There are scattered colonic diverticula without CT evidence of acute diverticulitis. The appendix is mildly distended and fluid-filled as seen on image #[id number]. This measures up to 8 mm in diameter. There is gas at the tip of the appendix, with no surrounding inflammation. Peritoneum: There is no intraperitoneal free air or abdominal ascites. Lymphadenopathy: None. Pelvic viscera: The prostate gland is markedly enlarged and heterogeneous, measuring 6.2 cm in transverse diameter. The bladder wall is thickened and hyperemic with pericystic inflammation. Inflammatory changes also seen around the prostate, and there is a developing 2.6 cm fluid collection within the left aspect of the gland seen on image #367. This is suspicious for developing abscess. Skeletal structures: There is mild lumbosacral spondylosis. No lytic or blastic lesions are seen. IMPRESSION: 1. There is evidence of cystitis/prostatitis with significant surrounding inflammation. Correlate with clinical findings and urinalysis. 2. A 2.6 cm fluid collection is suggested in the left lobe of the prostate, likely representing a developing abscess. Follow-up with urology is recommended. Follow-up is recommended to exclude the possibility of underlying prostatic lesion. 3. There is evidence of ascending bilateral urinary tract infection. 4. The appendix is mildly dilated and largely filled with fluid. There is no surrounding inflammation, and there is gas at the tip of the appendix. Acute appendicitis is considered unlikely. If there is strong clinical concern for acute appendicitis consider short-term follow-up with enteric contrast. 5. Circumferential wall thickening is noted in the distal esophagus. Correlate clinically for evidence of esophagitis. 6. Additional findings as above. PG Care Time/CCT Total # of Minutes Spent Total Time Spent with Patient: Total time spent is greater than 50% in coordination of care (as documented) at patient's floor/unit and/or counseling patient: Coding Level of Care Code 81879 Initial Inpt Care Lvl 2 Diagnoses Cyst of prostate N42.83
--- NOTE | 2021-07-18 10:23 | Anesthesiology Consultation ---
Date of Service July 18, 2021 Assessment & Plan (1) Encounter for pre-operative examination: Chart Review Chart Review: Acceptable Risk for Surgery and Patient NOT seen in Pre Admission Testing Consults Requested none History Surgery Operation Date: 07/18/21 08:20 Proposed Procedures p Cystoscopy, Possible Transurethral Resection Prostate - Jamaal Kaur DO Height/Weight Height: 5 ft 8 in Weight: 71.3 kg Allergies Allergy/AdvReac Type Severity Reaction Status Date / Time simvastatin [From Zocor] AdvReac Verified 07/15/21 10:36 Medications Home Medications Medication Instructions Recorded Confirmed Last Taken hydrocortisone 2.5 % topical cream 1 applic TOPICAL BID #30 g 02/09/20 07/15/21 Unknown aspirin 81 mg tablet,delayed 81 mg PO DAILY #1 tab 04/09/20 07/15/21 Unknown release atorvastatin 40 mg tablet 40 mg PO DAILY #90 tab 01/16/21 07/15/21 Unknown irbesartan 300 mg tablet 300 mg PO DAILY #90 tab 01/16/21 07/15/21 Unknown metoprolol succinate 50 mg 50 mg PO BID #180 tab 01/16/21 07/15/21 Unknown tablet,extended release 24 hr Active Medications Generic Name Dose Route Start Last Admin Trade Name Freq PRN Reason Stop Dose Admin Sodium Chloride 1,000 mls @ 125 mls/hr 07/18/21 06:50 07/18/21 07:27 Nss 1000ml IV 07/18/21 14:49 125 mls/hr .Q8H STA Administration Ciprofloxacin 400 mg in 200 mls @ 100 mls/hr 07/18/21 09:11 07/18/21 09:32 Cipro / D5w IV 07/18/21 11:10 100 mls/hr NOW STA Administration Protocol Past Medical History Medical History Achalasia BPH (benign prostatic hyperplasia) Hypercholesterolemia Hypertension Pre-diabetes Past Family History Family History Father Myocardial infarction Grandfather (Paternal) Myocardial infarction Grandfather (Maternal) Myocardial infarction Denies family history of Ovarian cancer Prostate cancer Coronary heart disease Breast cancer Lung cancer Colorectal cancer Past Surgical History Surgical History S/P tonsillectomy Social History Smoking Status: Never smoker Hx Alcohol Use: No Hx Substance Use: No Physical Exam Vital Signs Last Vital Signs Temp 98.2 F 07/18/21 06:41 Pulse 64 07/18/21 10:28 Resp 14 07/18/21 10:28 BP 135/73 07/18/21 10:28 Pulse Ox 98 07/18/21 10:28 Testing Laboratory Results 07/18/21 07:13 07/18/21 07:55 Urine Color Yellow 07/18/21 07:13 Urine Appearance Clear (Clear) 07/18/21 07:13 Urine pH 5.5 (4.5-7.5) 07/18/21 07:13 Ur Specific [place] 1.027 (1.000-1.030) 07/18/21 07:13 Urine Protein 2+ (Negative) H 07/18/21 07:13 Urine Glucose (UA) Negative (Negative) 07/18/21 07:13 Urine Ketones Negative (Negative) 07/18/21 07:13 Urine Nitrite Negative (Negative) 07/18/21 07:13 Ur Leukocyte Esterase Trace (Negative) H 07/18/21 07:13 Urine WBC (Auto) 10-30 /hpf (0-5) H 07/18/21 07:13 Urine RBC (Auto) 0-4 /hpf (0-4) 07/18/21 07:13 U Hyaline Cast (Auto) 1-5 /lpf (0-5) 07/18/21 07:13 U Epithel Cells (Auto) 5-10 /lpf (0-5) H 07/18/21 07:13 Urine Bacteria (Auto) 1+ (Negative) H 07/18/21 07:13 Electrocardiogram Date: 01/28/21 Findings: + NSR @
[2021-07-18 10:46] LABS: Influenza A virus by PCR Negative (Neg); Influenza B virus by PCR Negative (Neg); RSV by PCR Negative (Neg); SARS CoV2 RNA(COVID-19) InHosp NEGATIVE (Negative)
[2021-07-18] MEDS ORDERED: PROPOFOL IV EMULSION 10 MG/ML 20 ML VIAL IV ONE ×3 (10:53→13:30)
[2021-07-18] MEDS ORDERED: ONDANSETRON INJ 2 MG/ML 2 ML VIAL ONE (10:53)
[2021-07-18] MEDS ORDERED: fentaNYL citrate 100 MCG/2 ML VIAL ONE (10:54)
[2021-07-18] MEDS ORDERED: MIDAZOLAM HCL 1 MG/ML 2ML VIAL ONE (10:54)
--- NOTE | 2021-07-18 10:56 | History & Physical Report ---
Date of Service July 18, 2021 Assessment & Plan (1) Prostate abscess: Plan: - Pt afebrile, nontoxic, VSS. -Urology consulted by ED provider, plan to proceed with cystoscopy and possible TURP today for further evaluation. Will cover with Gentamicin 80 mg IV preopera tively per Dr. Kaur. - Blood cultures obtained and pending (orders after ABX given). - Urine culture pending. IV Ciprofloxacin in ED, Zosyn added by urology for more broad coverage pending cultures in addition to pre-op coverage with gentamicin. - Keep NPO for procedure. - Pain control with Toradol, anti-emetics ordered prn. (2) UTI (urinary tract infection): Plan: -As above. (3) BPH (benign prostatic hyperplasia): Plan: -Has not previously been on medications for this. (4) History of CVA (cerebrovascular accident): Plan: -Several years ago, cryptogenic, thought to be embolic in nature. Had a loop recorder implanted in 2019, has regular follow up with cardiology. Interrogation omn 07/15 did not reveal any arrhythmias. Not on anticoagulation. -No acute issues today, no residual effects. -Hold ASA d/t planned cystoscopy with possible TURP. (5) Hypertension: Plan: -Normotensive today -Hold metoprolol and irbesartan until tomorrow d/t planned cystoscopy with possible TURP. (6) Pre-diabetes: Plan: -Managed with diet and exercise, fasting glucose 105 today. (7) Hypercholesterolemia: Plan: -Continue statin tomorrow. (8) Achalasia: Plan: -s/p procedure in 2003, no issues today. Plan: -Admit to med/surg. -SCDs for DVT ppx. -Full code. History of Present Illness Chief Complaint: flank pain, urinary retention Primary Care Provider: Rafael Holder MD Patient is a 66 year old male with past medical history of CVA/TIA s/p placement of implantable loop recorder , HTN, HLD, BPH, elevated PSA, prediabetes, achalasia, who presented to emergency department today with a 1 week history of urinary symptoms and back pain. Initially he developed increased frequency with only voiding small dribbles of urine with each attempt to void. He went on to develop dysuria since then with an episode of hematuria and rigors two days ago, which he attributed to possibly passing a kidney stone. Does have a history of these 10+ years ago, they had passed spontaneously. Was seen by [facility] in 2017 for elevated PSA which has resolved. Denies a personal or family history of prostate CA, has lost weight over the past year, this was intentional, wit daily exercise and caloric reduction. No reports of night sweats, back pain besides this past week's events. No recent procedures. Otherwise without complaints, denies chets pain, palpations, SOB, cough, nausea/vomiting, abdominal pain, diarrhea, constipation, hematochezia, melena. In ED, VS wnl, stable. Labs significant for WBC 17.89, UA positive for blood, WBCs, bacteria, mucus, and trace leuk esterase. CT A/P showed a 2.6 cm fluid collection is suggested in the left lobe of the prostate, likely representing a developing abscess with evidence of cystitis/prostatitis with significant surrounding inflammation. Allergies Allergy/AdvReac Type Severity Reaction Status Date / Time simvastatin [From Zocor] AdvReac Verified 07/15/21 10:36 Home Medications Medication Instructions Recorded Confirmed Type hydrocortisone 2.5 % topical cream 1 applic TOPICAL BID #30 g 02/09/20 07/15/21 Rx aspirin 81 mg tablet,delayed 81 mg PO DAILY #1 tab 04/09/20 07/15/21 Rx release atorvastatin 40 mg tablet 40 mg PO DAILY #90 tab 01/16/21 07/15/21 Rx irbesartan 300 mg tablet 300 mg PO DAILY #90 tab 01/16/21 07/15/21 Rx metoprolol succinate 50 mg 50 mg PO BID #180 tab 01/16/21 07/15/21 Rx tablet,extended release 24 hr Past Med/Surg History Medical History Achalasia BPH (benign prostatic hyperplasia) Hypercholesterolemia Hypertension Pre-diabetes Surgical History S/P tonsillectomy Family History Father Myocardial infarction Grandfather (Paternal) Myocardial infarction Grandfather (Maternal) Myocardial infarction Denies family history of Ovarian cancer Prostate cancer Coronary heart disease Breast cancer Lung cancer Colorectal cancer Social History Smoking Status: Never smoker Second Hand Exposure: Yes; Do You Dip or Chew Tobacco: No; Tobacco Cessation Education Requested by Patient: No Hx Alcohol Use: No Hx Substance Use: No Preferred Language: Arabic Communication Ability: Effective Visual Impairment: No Limitations Hearing Ability: Hard of Hearing Schedule Planning Manager Required: No Beliefs That Will Affect Care: None marital status: Current Living Situation: Spouse current occupational status: retired Other Information That Helps Us Care for You: No Feels Safe at Home: Yes Safety Concerns: Feels Safe At This Time Childhood Exposure to Second-Hand Smoke: Yes caffeine: Yes during the past year weight has: remained stable Dental Care, Regularly: Yes Physical Activity Frequency: Daily Seatbelt Use: always Sunscreen Use: Yes Assistive Devices: Glasses Review of Systems Review of Systems: Constitutional: reports fever, chils, and weakness x2 days; no fatigue, myalgias, anorexia, night sweats Eyes: No diplopia, no worsening or blurred vision ENT: normal hearing, no trouble swallowing Respiratory: No cough, sputum, dyspnea at rest or on exertion Cardiovascular: No chest pain, tightness or palpitations Abdomen: No pain, nausea, vomiting, diarrhea or constipation : reports dysuria, hematuria, increased urgency/frequency, and urinary retention ongoing for past week Musculoskeletal: No joint pain, calf pain, swelling Neurologic: No weakness, numbness/tingling, or balance problems Psychiatric: No anxiety or depression Skin: No rash or itch Physical Exam Physical Exam: General: awake, alert, no apparent distress Head: Normocephalic, atraumatic ENT: PERRL, EOMI, no pharyngeal exudate, mucous membranes moist Chest: Clear to auscultation, on room air, no adventitious breath sounds Cardiac: Regular rate and rhythm, no murmur, no JVD, normal peripheral pulses, good capillary refill Abdominal: b/l flank pain, CVA tenderness; NABS x 4 quadrants, soft, nontender to palpation, no rebound, guarding or tenderness Extremities: Normal inspection, no peripheral edema or erythema, calfs nontender to palpation Psych: Normal mood and affect Neuro: AAO x 3, strength intact bilaterally and rated 5/5, no motor deficits, speech is clear, no peripheral sensory deficits Skin: no rash or erythema Results & Data Results & Data ([facility]) Vital Signs (Past 12 Hours) Vital Signs Temp Pulse Pulse Resp BP BP Pulse Ox 07/18/21 10:28 64 14 135/73 98 07/18/21 09:00 60 18 118/61 98 07/18/21 07:12 63 16 139/70 99 07/18/21 06:41 36.8 C 77 18 147/72 H 100 07/18/21 06:13 36.8 C 73 18 157/76 H 97 Laboratory Results Abnormal lab results 07/18/21 07/18/21 07/18/21 Range/Units 07:13 07:13 07:13 WBC 17.89 H (4.8-10.8) K/uL RBC 4.43 L (4.7-6.1) M/uL Hgb 13.6 L (14.0-18.0) g/dL Hct 39.9 L (42-52) % Neut # (Auto) 15.10 H (1.4-6.5) K/uL Lymph # (Auto) 1.11 L (1.2-3.4) K/uL Gray # (Auto) 1.46 H (0.11-0.59) K/uL Immature Gran # (Auto) 0.07 H (0.00-0.02) K/uL BUN/Creatinine Ratio 23.1 H (10-20) Glucose 105 H (70-99(Fasting)) mg/dl AST (13-39) U/L Urine Protein 2+ H (Negative) Urine Blood 1+ H (Negative) Ur Leukocyte Esterase Trace H (Negative) Urine WBC (Auto) 10-30 H (0-5) /hpf U Epithel Cells (Auto) 5-10 H (0-5) /lpf Urine Bacteria (Auto) 1+ H (Negative) Urine Mucus Present A (None Prsent) 07/18/21 Range/Units 07:55 WBC (4.8-10.8) K/uL RBC (4.7-6.1) M/uL Hgb (14.0-18.0) g/dL Hct (42-52) % Neut # (Auto) (1.4-6.5) K/uL Lymph # (Auto) (1.2-3.4) K/uL Gray # (Auto) (0.11-0.59) K/uL Immature Gran # (Auto) (0.00-0.02) K/uL BUN/Creatinine Ratio (10-20) Glucose (70-99(Fasting)) mg/dl AST 42 H (13-39) U/L Urine Protein (Negative) Urine Blood (Negative) Ur Leukocyte Esterase (Negative) Urine WBC (Auto) (0-5) /hpf U Epithel Cells (Auto) (0-5) /lpf Urine Bacteria (Auto) (Negative) Urine Mucus (None Prsent) Diagnostic Findings Abdomen/Pelvis CT 07/18/21 06:50 CT SCAN OF THE ABDOMEN AND PELVIS WITH IV CONTRAST CLINICAL HISTORY: Bilateral flank pain COMPARISON STUDY: No priors. TECHNIQUE: Following the IV administration of 95 cc of Optiray 320, CT scan of the abdomen and pelvis is performed from the lung bases to the proximal femora. Images are reviewed in the axial, sagittal, and coronal planes. IV contrast was administered without complication. A dose lowering technique was utilized adhering to the principles of ALARA. CT DOSE: 303.35 mGy.cm FINDINGS: Lung bases: The heart is normal in size noting trace pericardial effusion. The lung bases are clear. A small hiatal hernia is noted. Circumferential wall thickening is noted in the distal esophagus. Liver: The contrast-enhanced liver is normal in size, contour, and attenuation. There is no intrahepatic biliary ductal dilatation. The hepatic veins and portal veins are patent. Gallbladder: Unremarkable. Spleen: Normal in size and attenuation. Pancreas: Unremarkable. Adrenal glands: Unremarkable. Kidneys: The contrast enhanced kidneys are normal in size and without hydron ephrosis. Cortical enhancement is slightly heterogeneous bilaterally. Urothelial thickening and enhancement is identified in the ureters and renal pelvis bilaterally with surrounding inflammation perinephric stranding. A 1.3 cm cyst is noted in the right kidney. Abdominal vasculature: The abdominal aorta is normal in course and caliber noting moderate to advanced atherosclerotic calcification. Bowel: There is mild to moderate colonic fecal retention. No bowel obstruction is identified. There are scattered colonic diverticula without CT evidence of acute diverticulitis. The appendix is mildly distended and fluid-filled as seen on image #247. This measures up to 8 mm in diameter. There is gas at the tip of the appendix, with no surrounding inflammation. Peritoneum: There is no intraperitoneal free air or abdominal ascites. Lymphadenopathy: None. Pelvic viscera: The prostate gland is markedly enlarged and heterogeneous, measuring 6.2 cm in transverse diameter. The bladder wall is thickened and hyperemic with pericystic inflammation. Inflammatory changes also seen around the prostate, and there is a developing 2.6 cm fluid collection within the left aspect of the gland seen on image #367. This is suspicious for developing abscess. Skeletal structures: There is mild lumbosacral spondylosis. No lytic or blastic lesions are seen. IMPRESSION: 1. There is evidence of cystitis/prostatitis with significant surrounding inflammation. Correlate with clinical findings and urinalysis. 2. A 2.6 cm fluid collection is suggested in the left lobe of the prostate, likely representing a developing abscess. Follow-up with urology is recommended. Follow-up is recommended to exclude the possibility of underlying prostatic lesion. 3. There is evidence of ascending bilateral urinary tract infection. 4. The appendix is mildly dilated and largely filled with fluid. There is no surrounding inflammation, and there is gas at the tip of the appendix. Acute appendicitis is considered unlikely. If there is strong clinical concern for acute appendicitis consider short-term follow-up with enteric contrast. 5. Circumferential wall thickening is noted in the distal esophagus. Correlate clinically for evidence of esophagitis. 6. Additional findings as above. ACT 112: Negative or not required by law. Electronically signed by: Marty Barbosa M.D. 07/18/2021 8:48 AM Code Status & VTE Plan Code Status Full Code. VTE Prophylaxis Plan VTE Prophylaxis will be ordered: Yes Supervising Physician Co-Signing Physician Notes I personally saw and examined the patient. I verified all garcia points and agree with Mirian Pierson PA-C with the following exceptions and/or additions: 66yo male admission for 1 week urinary Sx and back pain. CT concerning for pros tatic abscess with concurrent fever and elevated WBC. Patient seen post operatively and doing well. Diet ordered by urology. hemodynamically stable and HR recorded elevated on exam around 80 bpm, regular rhythm. Mild lower abdominal tenderness without rebound or guarding. No CVA tenderness A/P Prostatic abscess - s/p cystoscopy. Continue Zosyn. Appreciate urology consult. Follow up urine and blood cultures. Prostatic mass - await biopsy sent to pathology, follow up urology PG Care Time/CCT Total # of Minutes Spent Total Time Spent with Patient: Total time spent is greater than 50% in coordination of care (as documented) at patient's floor/unit and/or counseling patient: Coding Level of Care Code 62916 Initial Inpt Care Lvl 3 Diagnoses History of CVA (cerebrovascular accident) Z86.73 Pre-diabetes R73.03 Hypertension I10 Hypertension type: essential hypertension Hypercholesterolemia E78.00 Achalasia K22.0 BPH (benign prostatic hyperplasia) N40.0 Prostate abscess N41.2 UTI (urinary tract infection) N39.0 (1) Hypertension Hypertension type: essential hypertension Qualified Code(s): I10 - Essential (primary) hypertension
[2021-07-18] MEDS ORDERED: ePHEDrine sulfate 50 MG/ML AMP IV PRN (11:22)
[2021-07-18] MEDS ORDERED: fentaNYL citrate 100 MCG/2 ML VIAL IV PRN (11:22)
[2021-07-18] MEDS ORDERED: ONDANSETRON INJ 2 MG/ML 2 ML VIAL IV PRN ×2 (11:22→14:53)
[2021-07-18] MEDS ORDERED: ATROPINE SULFATE 0.1 MG/ML 10ML SYR IV PRN (11:22)
[2021-07-18] MEDS ORDERED: ceFAZolin 330 MG/ML 1 GM VIAL ONE (12:23)
[2021-07-18] MEDS ORDERED: ceFAZolin 1000MG 1,000 MG/7.5 ML SYR IV ONE (12:47)
[2021-07-18] MEDS ORDERED: KETOROLAC 30 MG/ML VIAL ONE (12:50)
--- NOTE | 2021-07-18 13:45 | Operative Report ---
PG Post Operative Report Pre & Post Diagnosis Operation Date: 07/18/21 08:20 Pre-Op Diagnosis: Prostatic Lesion Post-Op Diagnosis: Prostatic Lesion I identified the patient and participated in the time-out.: Yes Procedure Operation Date: 07/18/21 08:20 Actual Procedures p Cystoscopy with Transurethral Resection of Prostate with Prostate Vaporization(Not Applicable) - Jamaal Kaur DO Surgeon Jamaal Kaur, II, DO General Accounting Clerk None Estimated Blood Loss 10 Findings Consistent with Post-Op Diagnosis Large lateral lobes with pocket of friable crypt filled tissue with debris in left lateral lobe Specimens Prostate adenoma. Drains 24Fr [address] Catheter Anesthesia Type General Complications none Disposition Disposition: Recovery Room Indications Patient with dysuria and significant pelvic pain found to have possible abscess of prostate. Risks and benefits discussed at length. Description of Procedure Patient was consented and brought back to the operating room. Patient was placed under anesthesia in the supine position and moved to the dorsal lithotomy position. Patient was prepped and draped in the regular sterile fashion. A time out was completed. A 30degree Cystoscope was placed into the bladder and the entire bladder was examined. The UO's were identified as well as the bladder neck, trigone, dome, and the other important landmarks. The prostatic urethra and large lobes/adenoma was assessed and the veru and bladder neck identified and area/size was assessed. The resection scope was placed and the fine bipolar loop was selected. Starting at the 5 and 7 o'clock positions, a channel was created from bladder neck to the veru. The channel allowed better flow. The left lateral lobe was then resected from approx 1 o'clock down to the 6 o'clock position from bladder neck to veru. The Specimen was removed and sent for analysis. The button was used to vaporize tissue as well. Within the deep section at approx 4 -5 o'clock position a pocket of friable crypt filled tissue was discovered. Debris and old appearing blood drained from the crypts. The resection bed and any bleeding areas were fulgurated/cauterized and the entire area inspected. All bleeding was controlled. The bladder was inspected a final time. The bladder was emptied and irrigated. All specimen and debris was removed. The scope was removed with the bladder partially full. A catheter was placed and balloon elevated. This was easily irrigated. CBI was started. The patient was cleaned, aroused from anesthesia, and transferred to the pacu in stable condition having tolerated the procedure well with no complications. I was present and participated in all aspects of the procedure. The patient will be monitored in the PACU until transferred. Plan to maintain on CBI over night with monitoring while on broad spectrum antibiotics. I attest to the content of the Intraoperative Record and any orders documented therein. Any exceptions are noted below.
[2021-07-18] MEDS ORDERED: KETOROLAC TROMETHAMINE 15 MG/ML VIAL IV PRN (14:53)
[2021-07-18] MEDS ORDERED: POLYETHYLENE (MIRALAX) 17 GM PACK PO PRN (14:53)
[2021-07-18] MEDS ORDERED: ACETAMINOPHEN 325 MG TAB PO PRN (14:53)
[2021-07-18] MEDS ORDERED: PIPERACILLIN/TAZOBACTAM 4.5 GM in DEXTROSE 5% 100 ML IV ONE (16:00)
[2021-07-18] MEDS ORDERED: COUGH DROP (SUGAR FREE) LOZ 24 LOZ/1 BOX BUCCAL PRN (19:55)
[2021-07-18] MEDS: METOPROLOL SUCC 50MG EXT REL TAB PO SCH (21:55)
[2021-07-18] MEDS: ATORVASTATIN 40 MG TAB PO SCH (21:55)
[2021-07-18] MEDS: PIPERACILLIN/TAZOBACTAM 3.375 GM in DEXTROSE 5% 100 ML IV SCH (22:47)
[2021-07-19] MEDS: PIPERACILLIN/TAZOBACTAM 3.375 GM in DEXTROSE 5% 100 ML IV SCH ×3 (05:23→21:14)
[2021-07-19] MEDS ORDERED: GENTAMICIN SULFATE 80 MG in DEXTROSE 5% 100 ML IV SCH (06:00)
[2021-07-19 08:05] LABS: Hematocrit (blood only) 36.4 % (42-52); Hemoglobin 12.6 g/dL (14.0-18.0); Mean Corpuscular Hgb Conc 34.6 g/dL (32-36); Mean Corpuscular Volume 89.4 fL (80-100); Mean Platelet Volume 9.6 fL (7.4-10.4); Platelet Count 288 K/uL (130-400); RDW Coefficient of Variation 13.6 % (11.5-14.5); RDW Standard Deviation 44.9 fL (36.4-46.3); Red Blood Count 4.07 M/uL (4.7-6.1); White Blood Count 24.42 K/uL (4.8-10.8)
[2021-07-19 08:29] LABS: BUN Creatinine Ratio 18.2 (10-20); Calcium 7.8 mg/dl (8.5-10.1); Est GFR (African American) 92.2 ml/min; Est GFR (Non-African American) 79.6 ml/min
[2021-07-19] MEDS: METOPROLOL SUCC 50MG EXT REL TAB PO SCH ×2 (08:37→21:19)
[2021-07-19 08:53] LABS: Basophils # (auto) 0.05 K/uL (0-0.2); Basophils % (auto) 0.2 %; Eosinophils # (auto) 0.13 K/uL (0-0.5); Eosinophils % (auto) 0.5 %; Immature Granulocytes # (auto) 0.16 K/uL (0.00-0.02); Immature Granulocytes % (auto) 0.7 %; Lymphocytes # (auto) 1.57 K/uL (1.2-3.4); Lymphocytes % (auto) 6.4 %; Monocytes # (auto) 1.41 K/uL (0.11-0.59); Monocytes % (auto) 5.8 %; Neutrophils % (auto) 86.4 %
[2021-07-19] MEDS ORDERED: VANCOMYCIN CONSULT ACTIVE PRN (12:36)
[2021-07-19] MEDS ORDERED: VANCOMYCIN HCL 1,500 MG in SODIUM CHLORIDE 0.9% 500 ML IV ONE (12:45)
--- NOTE | 2021-07-19 13:34 | Urology Progress Note ---
Date of Service July 19, 2021 Assessment & Plan (1) Prostate abscess: (2) UTI (urinary tract infection): (3) BPH (benign prostatic hyperplasia): Plan: Postop day #1 status post transurethral resection and transurethral vaporization of prostate. Patient had fluid containing edematous pocket of tissue on the left lateral lobe likely developing an abscess. Patient presented with severe infection with sepsis with fever, hypotension, significantly elevated white count with presumed prostatic abscess. Had tolerated procedure without major issue. Pain control has been good. Has been on a diet and increasing activity. Has tolerated catheter. Currently on assessment this morning CBI was on a low rate and patient had clear drainage on catheter with only a small amount of older appearing blood in the bag. Plan is to titrate CBI to off. If patient does develop increasing issues or redevelopment of hematuria can reinitiate on a slow drain. Plan will be to maintain catheter likely to for 7 to 10 days. To allow for full healing. Will likely need transition from broad-spectrum antibiotics to an at home regimen. Patient's last fever was last evening. Will likely need to stay at least 24 hours from that last fever. Would likely benefit from awaiting the full culture results which will likely be back at 48 hours. Pathology was sent on some of the tissue received from the transurethral resection portion. Patient had moderate prostate enlargement with signs of obstruction. No major issues within bladder. We will plan to observe with plans for follow-up in the office. Will likely need at least 7 to 10 days of antibiotics after procedure possibly longer depending on results. Monitor for other changes or issues. Plan for office follow-up Admission and Anticipated Discharge Date Admission Date: July 18, 2021 Subjective Postop from urologic surgery. Patient had presented acutely ill with UTI and concern for development of sepsis with possibility of stone due to significant pelvic and groin pain. Patient underwent CT scan and found to have fluid collection within the prostate possibly developing abscess. Patient has significantly elevated white count. Underwent transurethral resection. Found a pocket of very edematous crypt filled tissue with large amount of debris likely the area of a developing abscess/infection. Patient has been tolerating well, but is having some pain and discomfort. Incisions have been mild sore. Having some abdominal distension/gas pains. Has tolerated catheter. Has been on CBI at a slow trickle which has done well and has not had considerable increase in bleeding Has not had severe pain or uncontrollable pain. Patient has been ambulating. Has not had bowel movement or major change. No new nausea or vomiting. Had tolerated anesthesia without major problems Tolerated liquid diet postoperatively. Review of Systems Review of Systems: All systems reviewed & are unremarkable except as noted in HPI & below Physical Exam Physical Exam: General: Alert in no acute distress. HEENT: Normocephalic Atraumatic. Inspection normal. Cranial Nerves 2-12 Grossly intact. Normal inspection of face. Normal inspection of neck. Psychologic: Normal affect. Respiratory: Nonlabored. No use of accessory muscles. No tachypnea or dyspnea. Cardiovascular: No tachycardia Skin: [place] and Dry. No rashes or visible lesions. Extremities/Lymphatics: No edema Abdomen: Appropriately tender. Mild distended. No rebound or guarding. : Three-way catheter in place with clear urine and CBI on low flow. smAll amount of old appearing blood in bag. Results & Data ([facility]) Vital Signs (Past 12 Hours) Vital Signs Temp Pulse Resp BP Pulse Ox 07/19/21 11:53 36.7 C 65 14 96/55 L 96 07/19/21 08:35 66 106/62 07/19/21 07:35 36.8 C 65 14 105/62 94 07/19/21 01:56 36.8 C 72 16 98/58 L 97 PG Care Time/CCT Total # of Minutes Spent Total Time Spent with Patient: Total time spent is greater than 50% in coordination of care (as documented) at patient's floor/unit and/or counseling patient: Coding Level of Care Code 70535 Subseq Hosp Care Lvl 3 Diagnoses Prostate abscess N41.2 UTI (urinary tract infection) N39.0 BPH (benign prostatic hyperplasia) N40.0
--- NOTE | 2021-07-19 14:06 | Hospitalist Progress Note ---
Date of Service July 19, 2021 Assessment & Plan (1) Prostate abscess: Plan: - Pt afebrile, nontoxic, VSS. -Urology consulted by ED provider, plan to proceed with cystoscopy and possible TURP today for further evaluation. Will cover with Gentamicin 80 mg IV preopera tively per Dr. Kaur. - Blood cultures obtained and pending (orders after ABX given). - Urine culture pending. IV Ciprofloxacin in ED, Zosyn added by urology for more broad coverage pending cultures in addition to pre-op coverage with gentamicin. - Vancomycin added due to GPC on urine culture. - Pain control with Toradol, anti-emetics ordered prn. (2) UTI (urinary tract infection): Plan: -As above. (3) BPH (benign prostatic hyperplasia): Plan: -Has not previously been on medications for this. (4) History of CVA (cerebrovascular accident): Plan: -Several years ago, cryptogenic, thought to be embolic in nature. Had a loop recorder implanted in 2019, has regular follow up with cardiology. Interrogation omn 07/15 did not reveal any arrhythmias. Not on anticoagulation. -No acute issues today, no residual effects. -Hold ASA due to hematuria (5) Hypertension: Plan: -Normotensive today -Continue metoprolol, continue to hold irbesartan (6) Pre-diabetes: Plan: -Managed with diet and exercise, fasting glucose 105 today. (7) Hypercholesterolemia: Plan: -Continue atorvastatin (8) Achalasia: Plan: -s/p procedure in 2003, no issues today. Plan: -Admit to med/surg. -SCDs for DVT ppx. -Full code. Admission and Anticipated Discharge Date Admission Date: July 18, 2021 Subjective Patient currently on continuous bladder irrigation. No acute issues or concerns from patient. T max 39.3 yesterday 17:45 - he reports no feeling this. Good appetite. Eating and drinking well. Review of Systems Review of Systems: All systems reviewed & are unremarkable except as noted in Subjective Physical Exam Constitutional: WD/WN, vitals as above Eyes: + anicteric sclerae; normal pupil size ENMT: external ear and nose normal, oropharynx normal Respiratory: normal respiratory effort, lungs clear to auscultation Cardiovascular: RRR, no murmur, no edema Gastrointestinal (Abdomen): Percussion/Palpation: + abdomen tender (mild lower abdominal tenderness) and abdomen soft Skin: no rashes, warm and dry Neurologic: moves all extremities and awake; not confused Psychiatric: A+Ox3, euthymic affect Genitourinary: no CVA tenderness Results & Data Results & Data ([facility]) Vital Signs (Past 12 Hours) Vital Signs Temp Pulse Resp BP Pulse Ox 07/19/21 11:53 36.7 C 65 14 96/55 L 96 07/19/21 08:35 66 106/62 07/19/21 07:35 36.8 C 65 14 105/62 94 PG Care Time/CCT Total # of Minutes Spent Total Time Spent with Patient: Total time spent is greater than 50% in coordination of care (as documented) at patient's floor/unit and/or counseling patient: Coding Level of Care Code 05430 Subseq Hosp Care Lvl 2 Diagnoses Prostate abscess N41.2 UTI (urinary tract infection) N39.0 BPH (benign prostatic hyperplasia) N40.0 History of CVA (cerebrovascular accident) Z86.73 Hypertension I10 Hypertension type: essential hypertension Pre-diabetes R73.03 Hypercholesterolemia E78.00 Achalasia K22.0 (1) Hypertension Hypertension type: essential hypertension Qualified Code(s): I10 - Essential (primary) hypertension
--- NOTE | 2021-07-19 14:36 | Pharmacy Report ---
Pharmacy Vanc AUC Short Note - Date of Service July 19, 2021 - Assessment & Plan Assessment 66 year old M admitted with fever, hypotension and significant leukocytosis s/p transurethral resection and transurethral vaporization of prostate with presumed prostatic abscess Started on pip-tazo on 07/18. Vancomycin added today. Gram positive cocci growing in urine, with no growth to date Plan Vancomycin * Loading dose: 1500 mg IV (21 mg/kg) * Maintenance dose: 1000 mg (14 mg/kg) IV every 12 hours * Regimen is predicted to achieve target AUC/EMERY of 400-600 mg/L.hr within 48 hours of initiation * AUC/EMERY is the preferred PK/PD target for vancomycin * AUC guided dosing is effective and associated with decreased risk of nephrotoxicity compared to traditional trough targets * Trough level to be obtained if therapy continues beyond 48 hours Pharmacy will continue to follow and will adjust dose/frequency as necessary. Thank you.
[2021-07-19] MEDS: ATORVASTATIN 40 MG TAB PO SCH (21:14)
[2021-07-20] MEDS ORDERED: VANCOMYCIN HCL 1,000 MG in SODIUM CHLORIDE 0.9% 250 ML IV SCH (04:00)
[2021-07-20] MEDS: PIPERACILLIN/TAZOBACTAM 3.375 GM in DEXTROSE 5% 100 ML IV SCH (05:17)
[2021-07-20 07:07] LABS: Creatinine Clr Calc Pharmacy 82.8 ml/min; Est GFR (African American) 105.5 ml/min
--- NOTE | 2021-07-20 08:54 | Urology Progress Note ---
Date of Service July 20, 2021 Assessment & Plan (1) Prostate abscess: (2) UTI (urinary tract infection): Plan: At this point, he should have source control for the prostatic abscess, s/p transurethral unroofing. CBI is clamped, and as long as the urine remains clear to light pink, the irrigation can remain off. He will need to keep the catheter in place for 7 to 10 days. Urology will coordinate this removal as an outpatient. He has not had any fevers in more than 24 hours. His leukocytosis is improving, but WBC is still elevated this morning. Final culture results are not available yet. Depending on final culture results, he will likely need 10 days of antibiotics from the time of source control. He is eager to go home, and clinically he is looking well enough to do so. However where he did not have final culture data yet, it may be reasonable to wait for this to result. One possibility would be to empirically switch him to oral antibiotics and monitor, if he continues to do well, then he could go home. Admission and Anticipated Discharge Date Admission Date: July 18, 2021 Subjective Feeling well this morning and looking forward to going home. CBI was clamped yesterday afternoon, restarted in the evening but clamped again this morning. Urine remains clear. No issues with CBI or catheter overnight. Patient reports that he is not having any fevers or chills He is tolerating a diet and ambulating Review of Systems Constitutional: No fevers or chills Genitourinary: + as per Subjective / HPI (No issues with Funk catheter or CBI overnight.) Physical Exam Physical Exam: Well-appearing, NAD Respiratory: Breathing comfortably on room air Genitourinary: Funk catheter in place, CBI clamped. Urine in the line is clear with no clots and no signs of active bleeding. Results & Data ([facility]) Vital Signs (Past 12 Hours) Vital Signs Temp Pulse Resp BP Pulse Ox 07/20/21 07:11 37.0 C 61 14 118/70 96 07/19/21 21:10 36.9 C 63 16 101/64 98 PG Care Time/CCT Total # of Minutes Spent Total Time Spent with Patient: Total time spent is greater than 50% in coordination of care (as documented) at patient's floor/unit and/or counseling patient: Coding Level of Care Code 18711 Subseq Hosp Care Lvl 2 Diagnoses Prostate abscess N41.2 UTI (urinary tract infection) N39.0
[2021-07-20 08:56] LABS: Basophils # (auto) 0.03 K/uL (0-0.2); Basophils % (auto) 0.1 %; Eosinophils # (auto) 0.33 K/uL (0-0.5); Eosinophils % (auto) 1.5 %; Hematocrit (blood only) 38.7 % (42-52); Hemoglobin 13.1 g/dL (14.0-18.0); Immature Granulocytes % (auto) 0.5 %; Lymphocytes # (auto) 1.62 K/uL (1.2-3.4); Lymphocytes % (auto) 7.4 %; Mean Corpuscular Hemoglobin 30.7 pg (25-34); Mean Corpuscular Hgb Conc 33.9 g/dL (32-36); Mean Corpuscular Volume 90.6 fL (80-100); Mean Platelet Volume 9.5 fL (7.4-10.4); Monocytes # (auto) 1.34 K/uL (0.11-0.59); Monocytes % (auto) 6.1 %; Neutrophils # (auto) 18.47 K/uL (1.4-6.5); Neutrophils % (auto) 84.4 %; Platelet Count 353 K/uL (130-400); RDW Coefficient of Variation 13.7 % (11.5-14.5); RDW Standard Deviation 45.4 fL (36.4-46.3); Red Blood Count 4.27 M/uL (4.7-6.1); White Blood Count 21.89 K/uL (4.8-10.8)
[2021-07-20] MEDS: METOPROLOL SUCC 50MG EXT REL TAB PO SCH (09:12)
[2021-07-20 09:15] LABS: BUN Creatinine Ratio 15.7 (10-20); Calcium 8.4 mg/dl (8.5-10.1); Creatinine Clr Calc Pharmacy 80.1 ml/min; Est GFR (Non-African American) 89.7 ml/min; Potassium 4.1 mmol/L (3.5-5.1)
[2021-07-20] MEDS ORDERED: DOCUSATE SODIUM 100 MG CAP PO SCH (12:00)
[2021-07-20] MEDS ORDERED: CIPROFLOXACIN 500 MG TAB PO SCH (13:40)
--- NOTE | 2021-07-20 13:52 | Discharge Summary ---
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 Initially he developed increased frequency with only voiding small dribbles of urine with each attempt to void. He went on to develop dysuria since then with an episode of hematuria and rigors two days ago, which he attributed to possibly passing a kidney stone. Does have a history of these 10+ years ago, they had passed spontaneously. Was seen by [facility] in [place] for elevated PSA which has resolved. Denies a personal or family history of prostate CA, has lost weight over the past year, this was intentional, wit daily exercise and caloric reduction. No reports of night sweats, back pain besides this past week's events. No recent procedures. Otherwise without complaints, denies chets pain, palpations, SOB, cough, nausea/vomiting, abdominal pain, diarrhea, constipation, hematochezia, melena. In ED, VS wnl, stable. Labs significant for WBC 17.89, UA positive for blood, WBCs, bacteria, mucus, and trace leuk esterase. CT A/P showed a 2.6 cm fluid collection is suggested in the left lobe of the prostate, likely representing a developing abscess with evidence of cystitis/prostatitis with significant surrounding inflammation. Principal Diagnosis Prostate abscess Discharge Exam Constitutional WD/WN, vitals as above Eyes + anicteric sclerae; normal pupil size ENMT external ear and nose normal, oropharynx normal Respiratory normal respiratory effort, lungs clear to auscultation Cardiovascular RRR, no murmur, no edema Gastrointestinal (Abdomen) Percussion/Palpation: abdomen soft; abdomen nontender Skin no rashes, warm and dry Neurologic moves all extremities and awake; not confused Psychiatric A+Ox3, euthymic affect Genitourinary no CVA tenderness Discharge Data Allergies Allergy/AdvReac Type Severity Reaction Status Date / Time simvastatin [From Zocor] AdvReac Verified 07/15/21 10:36 Procedures Performed Operation Date: 07/18/21 08:20 Actual Procedures p Transurethral Resection Prostate with Prostate Vaporization(Not Applicable) - Jamaal H. Kaur, DO s Cystoscopy(Not Applicable) - Jamaal Kaur DO Ordered Studies 07/18/21 06:50 CT abd pelvis IV con only Stat IMPRESSION: 1. There is evidence of cystitis/prostatitis with significant surrounding inflammation. Correlate with clinical findings and urinalysis. 2. A 2.6 cm fluid collection is suggested in the left lobe of the prostate, likely representing a developing abscess. Follow-up with urology is recommended. Follow-up is recommended to exclude the possibility of underlying prostatic lesion. 3. There is evidence of ascending bilateral urinary tract infection. 4. The appendix is mildly dilated and largely filled with fluid. There is no surrounding inflammation, and there is gas at the tip of the appendix. Acute appendicitis is considered unlikely. If there is strong clinical concern for acute appendicitis consider short-term follow-up with enteric contrast. 5. Circumferential wall thickening is noted in the distal esophagus. Correlate clinically for evidence of esophagitis. 6. Additional findings as above. Hospital Course (1) Prostate abscess: Michele Porter is a 66 year old male admitted to [facility] from July 18 - 2021 due to 1 week of urinary symptoms and back pain. He was diagnosed with prostatic abscess which was treated with Zosyn and cystoscopy with transurethral resection of the prostate (TURP) performed by Dr Kaur on July 18. Catheter has been left in place and will be removed by urology in follow up. Due to continued hematuria recommend continuing to hold aspirin until urology follow up. For continued antibiotic coverage for infection recommend ciprofloxacin for total of 4 weeks as discussed with urology on discharge. Biopsy was also taken during your procedure TURP results pending on day of discharge. He should follow up with urology on discharge Due to low blood pressure he should continue to hold irbesartan but continue on metoprolol. Please follow up with your primary care provider for ongoing blood pressure management. (2) UTI (urinary tract infection): (3) BPH (benign prostatic hyperplasia): (4) History of CVA (cerebrovascular accident): (5) Hypertension: (6) Pre-diabetes: (7) Hypercholesterolemia: (8) Achalasia: Total Time Total Time Spent Total Time Spent (In Minutes): 35 Discharge Plan Discharge Items Patient Disposition: Home - Self-Care Reason For Visit: PROSTATE ABSCESS Discharge Diagnosis: Prostate abscess Activity: Resume your previous activity Non-emergency contact: Urologist Call non-emergency contact if: you have any medication questions and your symptoms worsen Follow-up/Referrals: Rafael Holder MD [Primary Care Provider] - Jamaal Kaur DO [Physician] - 07/25/21 2:40 pm (THIS APPT IS WITH NURSING TO REMOVE CATH.) Diet: Regular Addtl Attending Provider Instructions: You were admitted to [facility] from July 18 - 2021 due to 1 week of urinary symptoms and back pain. You were diagnosed with prostatic abscess which was treated with intravenous antibiotics and cystoscopy with transurethral resection of the prostate (TURP) performed by Dr Kaur on July 18. Catheter has been left in place and will be removed by urology in follow up. Due to continued hematuria (blood in your urine) recommend continuing to hold aspirin until urology follow up. For continued antibiotic coverage for infection recommend ciprofloxacin for total of 4 weeks (this may be stopped early by your urologist). Biopsy was also taken during your procedure with results pending on day of discharge. Please call the urologists number above for a follow up appointment. Due to low blood pressure please hold your irbesartan medication; you can continue on the metoprolol. Please follow up with your primary care provider for ongoing blood pressure management. Pending Studies at Discharge: Yes (prostate biopsy pathology results) Stand-Alone Forms: My [facility], Smoking Cessation Medications and DC Order Prescriptions: New ciprofloxacin HCl 500 mg Tablet 500 mg PO BID 28 Days Qty: 56 RF: 0 Continued atorvastatin 40 mg tablet 40 mg PO DAILY Qty: 90 RF: 3 metoprolol succinate 50 mg tablet extended release 24 hr 50 mg PO BID Qty: 180 RF: 3 hydrocortisone 2.5 % cream 1 applic topical BID Qty: 30 RF: 0 Discontinued irbesartan 300 mg tablet 300 mg PO DAILY Qty: 90 RF: 3 aspirin 81 mg tablet,delayed release (DR/EC) 81 mg PO DAILY Qty: 1 RF: 2 Discharge Orders: Discharge Order (Routine); Ordered 07/20/21 Ordered By: Arthur Washington/Other Patient Handouts: Indwelling Urinary Catheter Dc, ED Bladder Infection, Male (Adult) Admission Data Admit Date/Time: 07/18/21 10:42 Attending Provider: Arthur Ignacio Admit Provider: Arthur Ignacio Primary Care Provider: Rafael Holder Other Interventions: Discharge Summary Assessment (RN) Last Done: 07/20/21 14:16 Coding Level of Care Code D/C DAY MANAGEMENT >30 MINS Diagnoses Prostate abscess N41.2 UTI (urinary tract infection) N39.0 BPH (benign prostatic hyperplasia) N40.0 History of CVA (cerebrovascular accident) Z86.73 Hypertension I10 Hypertension type: essential hypertension Pre-diabetes R73.03 Hypercholesterolemia E78.00 Achalasia K22.0
== END 2021-07-20 16:20 | disposition home or self-care (01) | DRG 713 ==
LOC: ED 06:08 → ASU 11:05 → 3N 11:06
DX: N41.2 Abscess of prostate; Z86.73 Personal history of transient ischemic attack (TIA), and cerebral infarction without residual deficits; N40.1 Benign prostatic hyperplasia with lower urinary tract symptoms; Z88.8 Allergy status to other drugs, medicaments and biological substances; E78.5 Hyperlipidemia, unspecified; Z82.49 Family history of ischemic heart disease and other diseases of the circulatory system; R33.9 Retention of urine, unspecified; R97.20 Elevated prostate specific antigen [PSA]; N39.0 Urinary tract infection, site not specified; R73.03 Prediabetes